=== PATIENT | female | born 1980 | race Caucasian/White ===

== ENCOUNTER 2019-04-14 11:46 | Inpatient (IN) | payer OTHER ==
[2019-04-14] MEDS ORDERED: Ibuprofen 800 MG TAB PO PRN (12:55)
[2019-04-14] MEDS ORDERED: Promethazine HCl 25 MG/ML VIAL IM PRN (12:55)
[2019-04-14] MEDS ORDERED: hydrALAZINE 20 MG/ML VIAL SLOW IVP PRN (12:55)
[2019-04-14] MEDS ORDERED: Misoprostol 200 MCG TAB PR PRN (12:55)
[2019-04-14] MEDS ORDERED: Ondansetron PF 4 MG/2 ML Vial IVP PRN (12:55)
[2019-04-14] MEDS ORDERED: HYDROcodone/Acetaminophen 5/325 mg Tablet PO PRN (12:55)
[2019-04-14] MEDS ORDERED: Carboprost 250 MCG/ML AMP IM PRN (12:55)
[2019-04-14] MEDS ORDERED: Lidocaine 1% (PF) 30 ML VIAL SC PRN (12:55)
[2019-04-14] MEDS ORDERED: Methylergonovine 0.2 MG/ML VIAL IM PRN (12:55)
[2019-04-14] MEDS ORDERED: NS w/ Oxytocin 10 units 500 ML IV SCH (13:00)
[2019-04-14 13:25] LABS: Hemoglobin 11.5 g/dL (12.0-16.0); Mean Corpuscular HGB CONC 33.5 g/dL (32.0-36.0); Mean Corpuscular Hemoglobin 25.9 pg (27.0-31.0); Mean Corpuscular Volume 77.3 fL (78.0-98.0); Mean Platelet Volume 10.9 fL (7.4-10.4); Platelet Count 183 thou/uL (130-400); Red Blood Cell (RBC) Count 4.43 mill/uL (4.20-5.40); White Blood Cell (WBC) Count 7.7 thou/uL (4.8-10.8)
[2019-04-14 13:48] VITALS: BMI 33.7
[2019-04-14 14:08] LABS: Syphilis Antibody Nonreactive (Nonreactive); Syphilis Antibody Index 0.04 S/CO (<1.00 Non-Reactive)
[2019-04-14] MEDS: Vancomycin HCl 1 GM in Premix Bag 1 BAG IVPB SCH (14:40)
[2019-04-14 15:59] LABS: HBSAg Index 0.27 S/CO (0-0.99); Hep B Surf Ag Non-Reactive S/CO (NonReactive)
[2019-04-14] MEDS ORDERED: Fentanyl 4 mcg/Bup 0.1% Cadd 0 ML ONE (23:43)
[2019-04-15] MEDS: NS / Oxytocin 40 units/1000ml 1,000 ML IV PRN ×2 (00:20→01:43)
[2019-04-15] MEDS ORDERED: NS / Oxytocin 40 units/1000ml 1,000 ML IV SCH (01:47)
[2019-04-15] MEDS ORDERED: HYDROcodone/Acetaminophen 5/325 mg Tablet PO PRN (01:47)
[2019-04-15] MEDS ORDERED: hydrALAZINE 20 MG/ML VIAL SLOW IVP PRN (01:47)
[2019-04-15] MEDS ORDERED: Bisacodyl 10 MG SUPP PR PRN (01:47)
[2019-04-15] MEDS ORDERED: Benzocaine-Menthol 82.5 ML CAN TOP PRN (01:47)
[2019-04-15] MEDS ORDERED: Milk Of Magnesia 30 ML UDCUP PO PRN (01:47)
[2019-04-15] MEDS ORDERED: Lanolin Ointment 7 GM TUBE TOP PRN (01:47)
[2019-04-15] MEDS ORDERED: Preparation H Ointment 57 gram tube RC PRN (01:47)
[2019-04-15] MEDS: Ibuprofen 800 MG TAB PO SCH ×3 (06:17→21:06)
[2019-04-15] MEDS ORDERED: Adacel (T-DAP) 0.5 ML SYRINGE IM ONE (09:00)
[2019-04-15] MEDS: Ferrous Sulfate 325 MG TAB PO SCH ×2 (10:03→14:37)
[2019-04-15] MEDS: Vancomycin HCl 1 GM in Premix Bag 1 BAG IVPB SCH (10:03)
[2019-04-15] MEDS: Lactated Ringer's 1,000 ML IV SCH ×2 (10:03)
[2019-04-15] MEDS: Docusate Calcium (SURFAK) 240 MG CAP PO SCH ×2 (11:19→21:06)
[2019-04-15] MEDS ORDERED: FLU VACC QS2019-20(6MOS UP)/PF 60 MCG/0.5 ML SYRINGE IM ONE (14:15)
--- NOTE | 2019-04-15 21:48 | PDOC.OPDEL ---
OB Operative/Delivery Note Delivery Dr/Surgeon: Leland Pre-Delivery Diagnosis: medically indicated induction (Non reactive NST, 41 weeks gestation, AMA, TOLAC) Procedure/Post Delivery Dx: spontaneous vaginal delivery (Head OA, loose nuchal cord reduced prior to delivery, shoulders and body easily followed. to mogher's abdomen. Cord clamped and cut. Cord blood collected.) Weeks gestation: 41 Anesthesia: local - Findings A Sex: male - 1 min: 9 - 5 min: 9 - Additional Findings/Plan Placenta delivered: spontaneous Repaired Obstetrical Laceration: 1st degree (Repaired in standard fashion with 2.0 vicryl suture under local anesthesia.) Estimated blood loss: 150 ml Post delivery plan: routine recovery
[2019-04-16] MEDS: Ibuprofen 800 MG TAB PO SCH ×2 (05:32→14:08)
[2019-04-16] MEDS: Ferrous Sulfate 325 MG TAB PO SCH (08:28)
[2019-04-16] MEDS: Docusate Calcium (SURFAK) 240 MG CAP PO SCH (08:33)
--- NOTE | 2019-04-16 15:13 | PDOC.PP ---
Post Progress Note Post Day #: 1 Subjective: Doing well. No complaints. Pain controlled. Working on . PO intake tolerated: yes Flatus: yes Ambulation: yes Vital Signs (12 hours) Temp Pulse Resp BP Pulse Ox 04/16/19 08:17 98.4 F 61 20 106/56 L 98 04/16/19 05:38 98.2 F 57 L 16 101/69 Weight Weight 197 lb - Physical Examination General: NAD Cardiovascular: no m/r/g, RRR Respiratory: clear to auscultation bilaterally, non-labored breathing Abdominal: + bowel sounds, lochia, no distention, appropriately TTP Extremities: negative homans (B) Neurological: no gross focal deficits Psychiatric: A&Ox3 Result Diagrams: 04/14/19 13:13 Additional Labs: Post Labs Blood Type B POSITIVE 04/14/19 13:13 Hep Bs Antigen Non-Reactive S/CO (NonReactive) 04/14/19 13:13 (1) Vaginal delivery Code(s): O80 - ENCOUNTER FOR FULL-TERM UNCOMPLICATED DELIVERY Status: Acute - Assessment/Plan Routine PP care D/C home F/U 6 weeks
[2019-04-16 17:07] VITALS: BP 119/61; TEMP 98.7
== END 2019-04-16 17:15 | disposition home or self-care (01) | DRG 807 ==
LOC: L&D 11:46 → 3SE 04-15 09:00
PROVIDERS: ADMIT Family Medicine; ATTEND Family Medicine
PROC: 10E0XZZ Delivery of Products of Conception, External Approach (ICD-10-PCS; principal; 2019-04-14)
PROC: 0HQ9XZZ Repair Perineum Skin, External Approach (ICD-10-PCS; 2019-04-14)
PROC: 10907ZC Drainage of Amniotic Fluid, Therapeutic from Products of Conception, Via Natural or Artificial Opening (ICD-10-PCS; 2019-04-14)
PROC: 3E033VJ Introduction of Other Hormone into Peripheral Vein, Percutaneous Approach (ICD-10-PCS; 2019-04-14)
DX: O76 Abnormality in fetal heart rate and rhythm complicating labor and delivery (principal); Z37.0 Single live birth; Z3A.41 41 weeks gestation of pregnancy; O48.0 Post-term pregnancy; O69.81X0 Labor and delivery complicated by cord around neck, without compression, not applicable or unspecified; O70.0 First degree perineal laceration during delivery; Z28.21 Immunization not carried out because of patient refusal
CPT/HCPCS: 36415; 85027; 86780; 86850; 86900; 86901; 87340; J2001; J2590; J3370